=== PATIENT | male | born 1970 | race Asian ===

== ENCOUNTER 2019-05-26 14:56 | Inpatient (IN) | payer MEDICAID ==
[~2019-05-26] VITALS: Ht 172.7 cm; Wt 72.3 kg
[2019-05-26] MEDS ORDERED: aspirin 81mg tab.chew PO ONE (15:20)
--- NOTE | 2019-05-26 15:21 | NUR ---
Stroke RN at bedside
[2019-05-26 15:37] LABS: BASOPHILS # (AUTO) 0.1 X10'3 (0-0.2); BASOPHILS % (AUTO) 1.3 % (0-1); EOSINOPHILS # (AUTO) 0.1 X10'3 (0-0.9); EOSINOPHILS % (AUTO) 1.6 % (0-6); HEMOGLOBIN 17.8 g/dl (14.0-17.9); LYMPHOCYTES # (AUTO) 2.7 X10'3 (1.1-4.8); LYMPHOCYTES % (AUTO) 34.8 % (21-51); MEAN CORPUSCULAR HEMOGLOBIN 30.2 PG (27.0-31.0); MEAN CORPUSCULAR HGB CONC 34.9 g/dL (33.0-36.5); MEAN CORPUSCULAR VOLUME 86.4 FL (78-98); MONOCYTES # (AUTO) 0.4 X10'3 (0-0.9); MONOCYTES % (AUTO) 4.7 % (2-12); NEUTROPHILS # (AUTO) 4.5 X10'3 (1.8-7.7); NEUTROPHILS % (AUTO) 57.6 % (42-75); PLATELET COUNT 213 X10'3 (140-440); RED BLOOD COUNT 5.91 X10'6 (4.70-6.10); RED CELL DISTRIBUTION WIDTH 13.2 % (11.5-14.5); WHITE BLOOD COUNT 7.7 X10'3 (4.5-11.0)
[2019-05-26] MEDS ORDERED: iohexol 350MG/ML 100ml bottle IV ONE (15:47)
[2019-05-26 15:50] LABS: PARTIAL THROMBOPLASTIN TIME 28 SECONDS (22-32)
[2019-05-26 15:51] LABS: ALANINE AMINOTRANSFERASE 30 U/L (12-78); ALBUMIN 3.9 G/DL (3.4-5.0); ALBUMIN/GLOBULIN RATIO 1.1 (1.1-1.5); ALKALINE PHOSPHATASE 82 IU/L (46-116); ANION GAP 9 (8-16); ASPARTATE AMINO TRANSFERASE 16 U/L (10-37); BILIRUBIN,TOTAL 0.4 MG/DL (0.1-1.0); BLOOD UREA NITROGEN 16 MG/DL (7-18); BUN/CREATININE RATIO 12.6 (5.4-32.0); CALCIUM 8.5 MG/DL (8.5-10.1); CHLORIDE 103 MMOL/L (99-107); CREATININE 1.27 MG/DL (0.60-1.10); GLUCOSE 285 MG/DL (70-104); POTASSIUM 3.6 MMOL/L (3.5-5.1); SODIUM 140 MMOL/L (135-145); TOTAL CARBON DIOXIDE 28.1 MMOL/L (24-32); TOTAL PROTEIN 7.3 G/DL (6.4-8.2); eGFR 60 ML/MIN
[2019-05-26 15:55] LABS: TROPONIN I < 0.04 NG/ML (0.0-0.05)
[2019-05-26] MEDS: MESSAGE TO NURSING PO NR (16:00)
[2019-05-26] MEDS ORDERED: morphine 2 MG/ML inj. syringe IV PRN ×2 (16:45)
[2019-05-26] MEDS ORDERED: glucagon, human recombinant 1mg kit SUBCUT PRN (16:45)
[2019-05-26] MEDS ORDERED: magnesium hydroxide 30ml (MOM) UD suspension PO PRN (16:45)
[2019-05-26] MEDS ORDERED: HYDROcodone/acetaminophen 5mg/325mg tablet PO PRN (16:45)
[2019-05-26] MEDS ORDERED: acetaminophen 325mg tablet PO PRN ×2 (16:45)
[2019-05-26] MEDS ORDERED: MESSAGE TO PHARMACY PO ONE (16:45)
[2019-05-26] MEDS ORDERED: HYDROcodone/acetaminophen 10/325mg tab PO PRN (16:45)
[2019-05-26] MEDS ORDERED: dextrose 50%-water 50ml dispensing syringe IV PRN ×2 (16:45)
[2019-05-26] MEDS ORDERED: mag hydrox/Alum hydrox/simeth 30ml oral suspension PO PRN (16:45)
[2019-05-26] MEDS ORDERED: dextrose ORAL solution 15 GM/59 ML bottle PO PRN ×2 (16:45)
[2019-05-26] MEDS ORDERED: ondansetron/PF 4mg/2ml inj IV PRN (16:45)
[2019-05-26] MEDS ORDERED: ASPI-611 PO (16:48)
--- NOTE | 2019-05-26 16:54 | NUR ---
relieving RN for break, pt is resting quietly on gurney, waiting for bed assignment, pt aware dinner has been ordered
[2019-05-26 17:45] LABS: HEMOGLOBIN A1C 9.6 % (4.5-6.2)
[2019-05-26 17:52] LABS: CHOL/HDL RATIO 7.6 (0.00-4.99); CHOLESTEROL 235 MG/DL (0-200); HDL CHOLESTEROL 31 MG/DL (35-60); LDL CHOLESTEROL 133 MG/DL (50-100); TRIGLYCERIDES 392 MG/DL (20-135)
--- NOTE | 2019-05-26 18:33 | NUR ---
SPOKE WITH CN, CN VERBALIZED THAT MRI CAN WATCH TELE AND TRANSPORT PATIENT TO ASSIGNED ROOM 4021 SPOKE WITH RANDAL AT MRI TO CONFIRM WELL THE ORTHO/NEURO CN IS AWARE
[2019-05-26 19:15] VITALS: BP 124/88
[2019-05-26] MEDS: insulin Lispro (HumaLOG) vial - multi-dose SQ SCH (20:46)
[2019-05-26] MEDS ORDERED: insulin glargine (Lantus) pen - multi-dose SQ SCH (21:00)
[2019-05-26 22:00] VITALS: BP 118/73
[2019-05-27 02:01] VITALS: BP 112/78
[2019-05-27 06:00] VITALS: BP 104/62
[2019-05-27 06:07] LABS: BASOPHILS % (AUTO) 0.4 % (0-1); EOSINOPHILS # (AUTO) 0.3 X10'3 (0-0.9); EOSINOPHILS % (AUTO) 3.3 % (0-6); HEMATOCRIT 50.2 % (42.0-52.0); HEMOGLOBIN 17.5 g/dl (14.0-17.9); LYMPHOCYTES # (AUTO) 2.4 X10'3 (1.1-4.8); LYMPHOCYTES % (AUTO) 30.4 % (21-51); MEAN CORPUSCULAR HGB CONC 34.9 g/dL (33.0-36.5); MEAN PLATELET VOLUME 8.1 FL (7.4-10.4); MONOCYTES # (AUTO) 0.5 X10'3 (0-0.9); MONOCYTES % (AUTO) 6.3 % (2-12); NEUTROPHILS # (AUTO) 4.8 X10'3 (1.8-7.7); NEUTROPHILS % (AUTO) 59.6 % (42-75); PLATELET COUNT 206 X10'3 (140-440); RED BLOOD COUNT 5.84 X10'6 (4.70-6.10); RED CELL DISTRIBUTION WIDTH 13.2 % (11.5-14.5); WHITE BLOOD COUNT 8.1 X10'3 (4.5-11.0)
[2019-05-27 06:11] LABS: ALBUMIN 3.6 G/DL (3.4-5.0); ANION GAP 10 (8-16); BLOOD UREA NITROGEN 16 MG/DL (7-18); BUN/CREATININE RATIO 16.2 (5.4-32.0); CALCIUM 8.8 MG/DL (8.5-10.1); CHLORIDE 106 MMOL/L (99-107); CREATININE 0.99 MG/DL (0.60-1.10); GLUCOSE 178 MG/DL (70-104); POTASSIUM 3.7 MMOL/L (3.5-5.1); SODIUM 140 MMOL/L (135-145); eGFR 80 ML/MIN
--- NOTE | 2019-05-27 06:18 | NUR ---
reported to days. noted pt needs PMD and folllow up for high cholesterol, A1C and stroke follow up.
--- NOTE | 2019-05-27 06:46 | NUR ---
Patient in room ORTHO 4021. I have received report from Laura FENG and had the opportunity to ask questions and assume patient care.
[2019-05-27] MEDS ORDERED: atorvastatin 20mg tablet PO SCH (08:00)
[2019-05-27] MEDS ORDERED: enoxaparin 40mg/0.4ml syringe SUBCUT SCH (08:00)
[2019-05-27] MEDS ORDERED: aspirin 325mg tablet, delayed-release (Ecotrin) PO SCH (08:00)
[2019-05-27] MEDS ORDERED: clopidogrel 75mg tablet PO SCH (08:00)
[2019-05-27] MEDS: insulin Lispro (HumaLOG) vial - multi-dose SQ SCH ×2 (08:30→13:11)
[2019-05-27] MEDS: MESSAGE TO NURSING PO NR (09:02)
[2019-05-27 10:00] VITALS: BP 104/67
[2019-05-27] MEDS ORDERED: CLOP75TA35 PO (10:22)
[2019-05-27] MEDS ORDERED: ATOR20TA66 PO (10:22)
--- NOTE | 2019-05-27 13:40 | NUR ---
Safe DC with spouse. All personal items with patient. left in personal vehicle.
--- NOTE | 2019-05-27 14:06 | NUR ---
DM consult, A1c is 9.6; patient and family seen at bedside and given written DM education handout with verbal review and referral to outpatient DM education class on Friday (class on hold temporarily, contact information for class provided on flyer). Noted elevated triglycerides at 392 and elevated LDL at 133, also given written hypertriglyceridemia and heart healthy education handouts. Verbally reviewed all information. Family member prepares the meals and reports usually eat vegetables, white rice mixed with brown rice, chicken, pork, beef, fruit, uses very little corn oil for cooking; also reports eating out frequently and will choose steak and baked potato. Discussed recommendations for elevated TG and LDL. Pt verbalized understanding. Given RD contact information. Addendum: 05/27/19 at [address] Amended: Links added.
== END 2019-05-27 13:50 | disposition home or self-care (01) | DRG 45 ==
LOC: ER 14:56 → ED HOLD 16:41 → UNDOADMIN 16:47 → ORTHO 4S 19:19 → ED HOLD 19:19 → ORTHO 4S 19:44 → UNDODISIN 05-27 13:50
PROVIDERS: ADMIT Internal Medicine; ATTEND Internal Medicine
DX: I63.9 Cerebral infarction, unspecified (principal); E11.65 Type 2 diabetes mellitus with hyperglycemia; E78.00 Pure hypercholesterolemia, unspecified; E78.5 Hyperlipidemia, unspecified; F17.210 Nicotine dependence, cigarettes, uncomplicated; I10 Essential (primary) hypertension; Z79.02 Long term (current) use of antithrombotics/antiplatelets; Z86.73 Personal history of transient ischemic attack (TIA), and cerebral infarction without residual deficits; Z79.82 Long term (current) use of aspirin; Z71.6 Tobacco abuse counseling
CPT/HCPCS: 36415; 70450; 70496; 70498; 70544; 70551; 71045; 80048; 80053; 80061; 82948; 83036; 83880; 84484; 85025; 85610; 85651; 85730; 87081; 92508; 92616; 93005; 93306; 97110; 97116; 97162; 97530; 99291; G0378; J1650; J1815; Q9967